=== PATIENT | male | born 1985 | race Caucasian/White ===

== ENCOUNTER 2016-05-14 12:16 | Emergency (ER) | payer BC ==
[~2016-05-14] VITALS: Ht 172.7 cm; Wt 105.0 kg
[2016-05-14 12:18] VITALS: BP 163/107; PULSE 87; RESP 20; TEMP 97.9; O2SAT 96
--- NOTE | 2016-05-14 13:53 | PD ---
HPI Chief Complaint: Skin Problem Time Seen by Provider: 13:51 Travel History International Travel<30 days: No Contact w/Intl Traveler<30days: No Traveled to known affect area: No History of Present Illness HPI 30-year-old male presents to the emergency department for evaluation of rash to face and genitals. The patient states that he has a history of HSV-2 and has had a few genital outbreaks in the past which have resolved with antiviral therapy. States that yesterday he began to have a rash on the penis and also all over his face. States that it is a pruritic and painful rash. He admits that the lesion on his penis is not the same as when he has had herpes outbreaks in the past. He denies any fever, chills, nausea, vomiting, cough or cold symptoms, penile discharge or drainage. He denies any recent change in soaps or detergents. He has never had a rash like this on his face before. No other complaints. PFSH Social History Alcohol Use: Yes Tobacco Use: No Allergies-Medications (Allergen,Severity, Reaction): Coded Allergies: No Known Allergies (Unverified , 05/14/16) Reported Meds & Prescriptions Reported Meds & Active Scripts Active Keflex (Cephalexin) 500 Mg Cap 500 Mg PO Q8H 10 Days Prednisone 20 Mg Tab 20 Mg PO BID 5 Days Review of Systems Except as stated in HPI: all other systems reviewed are Neg Physical Exam Narrative GENERAL: Well-nourished and well-developed pleasant patient in no acute distress who is nontoxic appearing. SKIN: Warm and dry. The patient has patchy erythematous rash to face. The left side of his face has some crusting excoriations. HEAD: Normocephalic and atraumatic. EYES: No injection, drainage, or hyphema noted. PERRLA. EOMI. ENT: No nasal drainage noted. Oropharynx is clear, no swelling of the lips or tongue. NECK: Supple and the trachea is midline. CARDIOVASCULAR: Regular rate and rhythm. RESPIRATORY: Breath sounds are equal bilaterally with no accessory muscle use, wheezing, rhonchi, or crackles. GENITOURINARY: Circumcised. Testes descended bilaterally without evidence of rotation. There is a patchy area of erythema to the right base of the penile shaft, patient admits to recently shaving his pubic region. No vesicular lesions. No urethral discharge. Performed in the presence of Javier CALVO. NEUROLOGICAL: Awake, alert, and oriented. Normal speech and gait. Cranial nerves are grossly intact. Data Data Last Documented VS Vital Signs Date Time Temp Pulse Resp B/P Pulse Ox O2 Delivery O2 Flow Rate FiO2 05/14/16 12:18 97.9 87 20 163/107 96 Room Air MDM Medical Decision Making Medical Screen Exam Complete: Yes Emergency Medical Condition: Yes Differential Diagnosis Allergic reaction versus localized reaction versus cellulitis versus dermatitis Narrative Course 30-year-old male presents to the emergency department for evaluation of rash on face and genitals. Patient is afebrile, vital signs are stable. Initially the patient tells me he has a history of HSV-2 because he is concerned that he may be having another outbreak but admits that the rash she currently has is not similar to his previous outbreaks. The rash on his penis appears to be folliculitis, does not look like a vesicular herpes lesion. The rash on his face appears to be likely allergic in etiology however there is some crusting to the left side which I suspect is secondary to scratching. We'll prescribe the patient Keflex and prednisone, he is instructed to take [id number]-lsajast Benadryl. Discussed signs and symptoms of when to return to the emergency department. Advised to follow-up with his PCP. Patient verbalizes understanding and agreement with treatment plan. I discussed the case with my attending physician Dr. Thomas who is also evaluated the patient and agrees with treatment plan. Diagnosis Primary Impression: Rash and nonspecific skin eruption Referrals: Primary Care Physician Patient Instructions: Acute Rash (ED), General Instructions Additional Instructions: Take [id number] Benadryl every 4-6 hours as directed on the box. Take medications as prescribed with food and a full glass of water. Follow-up with your Primary Care Physician. Return to the ED for any acute worsening of symptoms. Med/Other Pt SpecificInfo: Prescription(s) given Scripts Cephalexin (Keflex)500 Mg Edu345 Mg PO Q8H 10 Days Ref 0 Prov:Anahi Thomas MD 05/14/16 Prednisone 20 Mg Tab20 Mg PO BID 5 Days Ref 0 Prov:Anahi Thomas MD 05/14/16 Disposition: 01 DISCHARGE HOME Condition: Stable Carolyn Sloan May 14, 2016 13:53
[2016-05-14] MEDS ORDERED: PRED20 PO (14:00)
[2016-05-14] MEDS ORDERED: CEPH-460 PO (14:00)
== END 2016-05-14 14:13 | disposition home or self-care (01) ==
LOC: EDBD → NEPB 12:16
DX: R21 Rash and other nonspecific skin eruption (principal); Z87.2 Personal history of diseases of the skin and subcutaneous tissue
CPT/HCPCS: 99283